=== PATIENT | female | born 1955 | race Caucasian/White ===

== ENCOUNTER 2023-02-19 05:11 | Emergency (ER) | payer MEDICARE ==
[~2023-02-19] VITALS: Ht 160 cm; Wt 77.1 kg
[2023-02-19] MEDS ORDERED: ASPIRIN81 MG PO (05:27)
[2023-02-19] MEDS ORDERED: LEVOTHYROXINE100 MC2 PO (05:29)
[2023-02-19] MEDS ORDERED: METOPROLOL SUCC25 MG PO (05:29)
[2023-02-19] MEDS ORDERED: LIPITOR40 MG PO (05:30)
[2023-02-19 06:22] LABS: BASOPHILS 0.2 % (0-2); EOSINOPHILS 0.3 % (0-6); HEMATOCRIT 38.8 % (35.0-50.0); LYMPHOCYTES 9.5 % (24-44); MCH 29.2 (27-36); MCHC 33.3 g/dl (30-36); MCV 87.4 fl (81-99); MONOCYTES 4.3 % (0-12); NEUTROPHILS 85.7 % (39-80); PLATELET COUNT 223 K/uL (140-440); RBC 4.44 M/ul (4.3-5.7); RDW 13.1 (10.5-15.0)
[2023-02-19 06:35] LABS: ALBUMIN 3.8 g/dL (3.4-5.0); ALBUMIN/GLOBULIN RATIO 1.15 (1.1-2.4); ANION GAP 14.6 (7-21); BILIRUBIN, TOTAL 0.7 ng/dL (0.2-1.0); BUN/CREATININE RATIO 11.02 (6.0-28.6); CALCIUM 9.3 mg/dL (8.5-10.1); CREATININE, SERUM 1.27 mg/dL (0.55-1.02); POTASSIUM 3.6 mmol/L (3.5-5.1); PROTEIN, TOTAL 7.1 g/dL (6.4-8.2)
[2023-02-19 07:01] LABS: BILIRUBIN, URINE NEGATIVE (negative); BLOOD/HGB, URINE LARGE (Negative); KETONE, URINE NEGATIVE (Negative); LEUK ESTERASE, URINE TRACE (negative); NITRITE, URINE NEGATIVE (negative)
[2023-02-19] MEDS ORDERED: PERCOCET 5-3251 EACH PO (07:01)
[2023-02-19] MEDS ORDERED: FLOMAX0.4 MG PO (07:01)
[2023-02-19] MEDS ORDERED: CIPRO500 MG PO (07:01)
[2023-02-19] MEDS ORDERED: ONDANSETRON ODT8 MG PO (07:01)
[2023-02-19 07:09] LABS: RED BLOOD CELLS, URINE 21-40 /hpf (0-5)
[2023-02-19 07:10] LABS: BACTERIA, URINE RARE /hpf (negative); CASTS, URINE NONE SEEN \\lpf; COLLECTION TYPE, URINE CLEAN CATCH; CRYSTALS, URINE NONE SEEN (0-1+); EPITHELIAL CELLS, URINE SQUAMOUS 1+ /lpf (0-1+); REFLEX CULTURE, URINE No (No)
[2023-02-19 07:25] VITALS: BP 132/87
== END 2023-02-19 07:27 | disposition home or self-care (01) ==
LOC: ED 05:11
PROVIDERS: Family Medicine
DX: N13.2 Hydronephrosis with renal and ureteral calculous obstruction (principal); Z79.82 Long term (current) use of aspirin; Z79.899 Other long term (current) drug therapy
CPT/HCPCS: 36415; 74176; 80053; 81001; 85025; 96374; 96375; 99284-25; A9270; J1885; J2270; J2405; J7030